=== PATIENT | female | born 1980 ===

== ENCOUNTER 2017-09-18 12:34 | Inpatient (IN) | payer OTHER ==
[~2017-09-18] VITALS: Ht 162.6 cm; Wt 52.2 kg
[2017-09-26] MEDS ORDERED: CEFADROXIL500 MG PO (09:14)
[2017-09-26] MEDS ORDERED: MUCINEX600 MG PO (09:15)
[2017-09-26] MEDS ORDERED: BENZONATATE100 MG PO (09:15)
== END 2017-09-26 09:28 | disposition home or self-care (01) | DRG 194 ==
LOC: ER 12:34 → MEDI 19:00 → EDBD 19:00 → MEDI 09-22 11:03 → MEDJ 09-22 11:46
PROC: 4A033R1 Measurement of Arterial Saturation, Peripheral, Percutaneous Approach (ICD-10-PCS; principal; 2017-09-18)
PROC: BB24ZZZ Computerized Tomography (CT Scan) of Bilateral Lungs (ICD-10-PCS; 2017-09-18)
PROC: 3E0F7GC Introduction of Other Therapeutic Substance into Respiratory Tract, Via Natural or Artificial Opening (ICD-10-PCS; 2017-09-18)
PROC: B246ZZZ Ultrasonography of Right and Left Heart (ICD-10-PCS; 2017-09-19)
PROC: BB4BZZZ Ultrasonography of Pleura (ICD-10-PCS; 2017-09-19)
DX: J18.9 Pneumonia, unspecified organism (principal); J90 Pleural effusion, not elsewhere classified; R78.81 Bacteremia; B37.0 Candidal stomatitis; R09.02 Hypoxemia; J01.00 Acute maxillary sinusitis, unspecified; F17.210 Nicotine dependence, cigarettes, uncomplicated; B95.3 Streptococcus pneumoniae as the cause of diseases classified elsewhere

== ENCOUNTER 2020-04-30 10:45 | Emergency (ER) | payer OTHER ==
[~2020-04-30] VITALS: Ht 162.6 cm; Wt 54.4 kg
[~2020-04-30 10:45] MED LIST: BENZONATATE100 MG PO; CEFADROXIL500 MG PO; MUCINEX600 MG PO
[2020-04-30] MEDS ORDERED: ZYRTEC10 MG PO (11:41)
== END 2020-04-30 13:41 | disposition home or self-care (01) ==
LOC: ER 10:45
DX: S93.691A Other sprain of right foot, initial encounter (principal); X50.3XXA Overexertion from repetitive movements, initial encounter; Y93.73 Activity, racquet and hand sports; Y92.89 Other specified places as the place of occurrence of the external cause; Y99.8 Other external cause status